=== PATIENT | female | born 2000 | race Caucasian/White ===

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

== ENCOUNTER 2024-07-31 22:26 | Emergency (ER) | payer OTHER ==
[~2024-07-31] VITALS: Ht 154.9 cm; Wt 59.0 kg
[~2024-07-31 22:26] MED LIST changes: +MOTRIN 400 MG E4 TAB PO
[2024-07-31] MEDS ORDERED: METHOCARBAMOL 500 MG TAB PO ONE (23:20)
[2024-07-31] MEDS ORDERED: Ketorolac Tromethamine 30 MG/ML VIAL IM ONE (23:20)
[2024-07-31] MEDS ORDERED: METHOCARBAMOL500 M1 PO (23:21)
[2024-07-31] MEDS ORDERED: NAPROXEN250 MG PO (23:21)
== END 2024-07-31 23:36 | disposition home or self-care (01) ==
LOC: ED 22:26
DX: S16.1XXA Strain of muscle, fascia and tendon at neck level, initial encounter (principal); R51.9 Headache, unspecified; V89.2XXA Person injured in unspecified motor-vehicle accident, traffic, initial encounter; Y93.89 Activity, other specified; Y92.488 Other paved roadways as the place of occurrence of the external cause; Y99.8 Other external cause status